=== PATIENT | male | born 1950 | race Caucasian/White ===

== ENCOUNTER 2016-11-11 03:13 | Inpatient (IN) | payer OTHER, MEDICARE ==
[~2016-11-11] VITALS: Ht 165.1 cm; Wt 77.1 kg
[~2016-11-11 03:13] MED LIST: ASPIRIN EC81 M1 PO; FENOFIBRATE134 M1 PO; MICARDIS HCT; MICARDIS HCT 81 EAC1 PO; OMEPRAZOLE40 M1 PO; SIMVASTATIN20 MG PO; [UNRECOGNIZED DRUG - OTHER]
[2016-11-11 07:53] LABS: ABSOLUTE BASOPHIL COUNT 0 /CUMM (0.0-0.2); ABSOLUTE EOSINOPHIL COUNT 0.1 /CUMM (0.0-0.7); ABSOLUTE GRANULOCYTE CT 2.1 /CUMM (1.4-6.5); ABSOLUTE LYMPH COUNT 2.5 /CUMM (1.2-3.4); ABSOLUTE MONOCYTE COUNT 0.4 /CUMM (0.10-0.60); BASOPHIL % 0.6 % (0.0-2.0); EOSINOPHIL % 2.9 % (0-5); GRANULOCYTE % 40.7 % (42.2-75.2); MEAN CORPUSCULAR HGB 32.1 PG (27.0-31.0); MEAN CORPUSCULAR HGB CONC 34.6 G/DL (33.0-37.0); MEAN CORPUSCULAR VOLUME 92.7 FL (80.0-94.0); MEAN PLATELET VOLUME 9.6 FL (7.4-10.4); PLATELET COUNT 200 /CUMM (130-400); RBC DISTRIBUTION WIDTH 14.1 % (11.5-14.5); RED BLOOD CELL CT 4.64 /CUMM (4.70-6.10); WHITE BLOOD CELL COUNT 5.1 /CUMM (4.8-10.8)
--- NOTE | 2016-11-11 11:44 | RADIOLOGY REPORT ---
EXAMINATION: XR HIP, LEFT CLINICAL INFORMATION: Left total hip replacement COMPARISON: None TECHNIQUE: Two views of the left hip. FINDINGS: The components of the noncemented left total hip arthroplasty are in their expected positions. The prosthetic femoral head is well-positioned within the acetabular cup which exhibits approximately 53 degrees of lateral version. No acute fractures. There is postoperative soft tissue emphysema of the hip. IMPRESSION: There is satisfactory positioning and alignment of components of the left total hip arthroplasty. No acute periprosthetic fracture.
--- NOTE | 2016-11-11 12:37 | Admission Core Measures ---
Admission Lab Results I reviewed the following labs: Laboratory Tests 11/11 0700 Chemistry Sodium (137 - 145 mmol/L) 140 Potassium (3.5 - 5.1 mmol/L) 4.1 Chloride (98 - 107 mmol/L) 103 Carbon Dioxide (22 - 30 mmol/L) 28 Anion Gap (5 - 16) 9 BUN (9 - 20 mg/dL) 20 Creatinine (0.7 - 1.2 mg/dL) 0.8 Estimated GFR (>60 ml/min) > 60 BUN/Creatinine Ratio (7 - 25 %) 25.0 Glucose (65 - 99 mg/dL) 96 Calcium (8.4 - 10.2 mg/dL) 9.9 Hematology CBC w Diff NO MAN DIFF REQ WBC (4.8 - 10.8 /CUMM) 5.1 RBC (4.70 - 6.10 /CUMM) 4.64 L Hgb (14.0 - 18.0 G/DL) 14.9 Hct (42 - 52 %) 43.0 MCV (80.0 - 94.0 FL) 92.7 MCH (27.0 - 31.0 PG) 32.1 H RDW (11.5 - 14.5 %) 14.1 Plt Count (130 - 400 /CUMM) 200 MPV (7.4 - 10.4 FL) 9.6 Gran % (42.2 - 75.2 %) 40.7 L Lymphocytes % (20.5 - 51.1 %) 48.3 Monocytes % (1.7 - 9.3 %) 7.5 Eosinophils % (0 - 5 %) 2.9 Basophils % (0.0 - 2.0 %) 0.6 Absolute Granulocytes (1.4 - 6.5 /CUMM) 2.1 Absolute Lymphocytes (1.2 - 3.4 /CUMM) 2.5 Absolute Monocytes (0.10 - 0.60 /CUMM) 0.4 Absolute Eosinophils (0.0 - 0.7 /CUMM) 0.1 Absolute Basophils (0.0 - 0.2 /CUMM) 0 PUBS MCHC (33.0 - 37.0 G/DL) 34.6 Admission Meds I reviewed the following Meds: Current Medications Sig/Samantha Start time Last Medication Dose Stop Time Status Admin Acetaminophen 975 MG ONCE 11/11 0000 AC (Tylenol) 05/03 2359 Atorvastatin Calcium 10 MG 1700 11/11 1700 AC (Lipitor) Cefazolin Sodium 2,000 MG ONCE 11/11 0000 NR (Kefzol-Ancef Inj) 11/11 2358 Fenofibrate 145 MG DAILY 11/12 1000 AC (Tricor) Losartan Potassium 50 MG DAILY 11/12 1000 AC (Cozaar) Omeprazole 40 MG DAILY AC 11/11 1219 AC (Prilosec) Oxycodone HCl 10 MG ONCE 11/11 0000 NR (Roxicodone) 11/11 2358 Acute Coronary Syndrome Inclusion Criteria ACS Diagnosis No Inpatient Core Measures LDL Reminder: If No, please order W/I first 24hr of stay Congestive Heart Failure Inclusion Criteria CHF Diagnosis No Cerebrovascular accident Inclusion Criteria CVA/TIA Diagnosis No Inpatient Core Measures Bedside Swallow Eval Reminder: If BSE failed, place ST order Antithrombotic Reminder: Order Antithrombotic Medication by end of day 2 Antithrombotic Reminder: Document Reason Antithrombotic Not ordered by end of day 2 AFIB/Flutter Reminder: If Present, add to problem list AFIB/Flutter Reminder: Order Anticoag Medication for pts with AFIB/Flutter Atherosclerosis Reminder: If Present, add to problem list LDL Reminder: If No, please order W/I first 24hr of stay PT Order Reminder: If No, please order Venous thromboembolism Inpatient Core Measures VTE Risk Factors: Age > 40, Surgery [facility] prophylaxis d/t No contraindications No VTE Pharm Prophylaxis d/t No contraindications Inclusion Criteria - Per Current guidelines, there needs to be overlap - treatment for the first 5 days of Warfarin therapy. - Parenteral Anticoagulation (IV or SC) needs to be - given along with Warfarin therapy. VTE Diagnosis No VTE Type NONE VTE Confirmed by (Test) NONE Problem List As ranked by this Provider includes Assessment & Plan 1. Unilateral primary osteoarthritis, left hip HOME MEDS Home Med List Aspirin (Ecotrin*) 81 MG TABLET.DR 1 TAB PO DAILY PROPHO (Reported) Fenofibrate,Micronized (Fenofibrate) 134 MG CAPSULE 1 CAP PO DAILY TRIGLYCERIDES (Reported) Omeprazole 40 MG CAPSULE.DR 1 CAP PO DAILY GERD (Reported) Simvastatin (Zocor) 20 MG TAB 1 TAB PO QPM CHOLESTEROL (Reported) Telmisartan/Hydrochlorothiazid (Micardis Hct 80-25 MG Tablet) 80 MG-25 MG TABLET 1 TAB PO DAILY HTN (Reported)
[2016-11-11] MEDS ORDERED: MS CONTIN15 M2 PO (12:38)
[2016-11-11] MEDS ORDERED: DILAUDID2 M1 PO (12:38)
[2016-11-11] MEDS ORDERED: MIRALAX17 G1 PO (12:38)
[2016-11-11] MEDS ORDERED: ASPIRIN EC325 M2 PO (12:38)
[2016-11-11] MEDS ORDERED: COLACE100 M1 PO (12:38)
--- NOTE | 2016-11-11 12:43 | Patient Discharge Instructions ---
Discharge Instructions General Discharge Information You were seen/treated for: LEFT HIP UNILATERAL PRIMARY OSTEOARTHRITIS You had these procedures: LEFT TOTAL HIP REPLACEMENT Watch for these problems: INCREASING PAIN DESPITE THE USE OF PAIN MEDICATIONS. INCREASING REDNESS, WARMTH , SWELLING. DRAINAGE OF ANY TYPE FROM INCISION. INABILITY TO BEAR WEIGHT ON LEFT LEG. FEVER GREATER THAN 101.5 Do not soak the wound: Yes No bath, but you may shower: Yes Other wound care: KEEP WOUND CLEAN AND DRY NO OINTMENTS OF ANY TYPE ON OR NEAR INCISION, NO EXCEPTIONS Diet Continue normal diet: Yes Recommended Diet: Regular Additional DIET Information: ADVANCE TOLERATED Activity Full Activity/No Limits: No Activity Self Limited: Yes Pounds, do NOT lift more than: 10 Additional ACTIVITY Info: WEIGHT BEAR TOLERATED ON LEFT LEG Acute Coronary Syndrome Inclusion Criteria At DC or during hospital stay patient has or had the following: ACS DIAGNOSIS No Discharge Core Measures Meds if any: Prescribed or Continued at Discharge Meds if any: NOT Prescribed or Continued at Discharge Congestive Heart Failure Inclusion Criteria At DC or during hospital stay patient has or had the following: CHF DIAGNOSIS No Discharge Core Measures Meds if any: Prescribed or Continued at Discharge Meds if any: NOT Prescribed or Continued at Discharge Cerebrovascular accident Inclusion Criteria At DC or during hospital stay patient has or had the following: CVA/TIA Diagnosis No Discharge Core Measures Meds if any: Prescribed or Continued at Discharge Meds if any: NOT Prescribed or Continued at Discharge Venous thromboembolism Inclusion Criteria VTE Diagnosis No VTE Type NONE VTE Confirmed by (Test) NONE Discharge Core Measures - Per Current guidelines, there needs to be overlap - treatment for the first 5 days of Warfarin therapy. - If discharged on Warfarin prior to 5 days of - overlap therapy, the patient will need to be - assessed for post discharge needs including - *Post discharge parental anticoagulation - *Warfarin and/or parental anticoagulation education - *Follow up date to check INR post discharge At least 5 days overlap therapy as Inpatient No Meds if any: Prescribed or Continued at Discharge Note: Overlap Therapy is Warfarin and Anticoagulant Meds if any: NOT Prescribed or Continued at Discharge
--- NOTE | 2016-11-11 12:47 | Surgical Discharge Summary ---
Visit Information Visit Dates Admission Date: 11/11/16 Discharge Date: 11/12/16 History of Present Illness Chief Complaint: LEFT HIP PAIN Surgical History Pertinent Surgical History: non-contributory Psychosocial History What is Your Primary Language? Greek Review of Systems: SEE H&P Hospital Course Course Attending Physician: RANDY LITTLEJOHN MD [facility] [place] was admitted to the hospital on 11/11/2016 for an elective left total hip replacement. He tolerated the procedure well and was transferred to a general surgical floor. There, his vital signs were stable and within normal limits, his neurovascular status remained intact, and his diet was advanced and tolerated. He voided spontaneously. His pain was controlled with oral pain medication and he was evaluated and treated by physical therapy. He was deemed appropriate for discharge. Allergies: Coded Allergies: NO KNOWN ALLERGIES (02/15/14) Disposition Summary Disposition Principal Diagnosis: left hip unilateral primary osteoarthritis Additional Diagnosis: none Discharge Disposition: home health services Discharge Instructions General Discharge Information Code Status: Full Code Patient's Diet: regular, advance as tolerated Patient's Activity: wbat Follow-Up Instructions/Appts: follow up with Dr. Littlejohn in 6 weeks from date of surgery Medications at Discharge Discharge Medications: Stop taking the following medications: Aspirin (Ecotrin*) 81 MG TABLET. ORAL DAILY Continue taking these medications: Simvastatin (Zocor) 20 MG TAB 1 Tablet ORAL Every night Fenofibrate,Micronized (Fenofibrate) 134 MG CAPSULE 1 Capsule ORAL DAILY Comments: Last Taken: 11/12/16 Time: 0800 Telmisartan/Hydrochlorothiazid (Micardis Hct 80-25 MG Tablet) 80 MG-25 MG TABLET 1 Tablet ORAL DAILY Comments: Last Taken: 11/12/16 Time: 0800 Omeprazole (Omeprazole) 40 MG CAPSULE.DR 1 Capsule ORAL DAILY Comments: Last Taken: 11/12/16 Time: 0530 Start taking the following new medications: Aspirin (Ecotrin*) 325 MG TABLET. 1 Tablet ORAL TWICE DAILY Qty = 60 No Refills Docusate Sodium (Colace) 100 MG CAPSULE 1 Capsule ORAL TWICE DAILY Qty = 14 No Refills Instructions: DISCONTINUE USE IF YOU DEVELOP LOOSE STOOL OR DIARRHEA Hydromorphone HCl (Dilaudid) 2 MG TABLET 1-2 Tablet ORAL EVERY 4-6 HOURS as needed for PAIN Qty = 36 No Refills Polyethylene Glycol 3350 (Miralax) 17 GRAM POWD.PACK 1 Packet ORAL DAILY Qty = 7 No Refills Instructions: dissolve in water, DISCONTINUE USE IF YOU DEVELOP LOOSE STOOL OR DIARRHEA Morphine Sulfate (Ms Contin) 15 MG TABLET.ER 1 Tablet ORAL TWICE DAILY Qty = 6 No Refills
[2016-11-11 13:55] VITALS: BP 138/72
--- NOTE | 2016-11-11 13:56 | Operative Report ---
Operative/Inv Procedure Report Surgery Date: 11/11/16 Name of Procedure: Left total hip replacement Pre-Operative Diagnosis: Left hip avascular necrosis Post-Operative Diagnosis: Same Estimated Blood Loss: 300 Surgeon/[employer] Salesperson: RANDY LITTLEJOHN MD Anesthesia: block Operative/Procedure Note Note: Description of Procedure: The patient was taken to the operating room and positively identified. After induction of spinal anesthesia and administration of appropriate pre-operative antibiotics, the patient was positioned supine on the operating room table and all bony prominences were well padded. After performing a surgical timeout, the left lower extremity was prepped and draped in the usual sterile fashion. A direct anterior approach was made to the left hip. The incision was carried sharply through superficial soft tissues to the level of the fascia. Meticulous hemostasis was maintained with Bovie electocautery. The fascia over the tensor fascia tony muscle was opened sharply and the interval between the TFL and the sartorius was entered bluntly taking care to stay lateral to the lateral femoral cutaneous nerve. Retractors were placed around the femoral neck and the pericapsular fat was identified. The ascending branches of the lateral femoral circumflex vessels were identified and carefully coagulated. The pericapsular fat and anterior capsule were then resected. A napkin ring osteotomy was performed and the femoral head was removed without difficulty. Attention was then turned to the acetabulum. After appropriate placement of retractors, the acetabulum was exposed. Soft tissue was cleaned from the acetabular margin and notch. Overhanging osteophytes were removed and the teardrop was exposed. The acetabulum was then sequentially reamed to accept a 58 mm Salima Tritanium hemispherical solid back shell. This was impacted into place in the appropriate position and fitted with a 36 mm Trident X3 zero degree polyethylene insert. Attention was then turned to the femur. After performing the appropriate ligament releases, the proximal femur was exposed. It was then sequentially broached to accept a size 4 Salima accolade 2 stem. This was trialed for leg length and stability. The trial component was removed and the final component was impacted into place. The trunnion was carefully cleaned and fit with a 36 mm, -2.5 Biolox delta ceramic femoral head. The hip was reduced and put through a full range of motion and found to be stable. The articular space was then irrigated with sterile saline. The periarticular soft tissues were infilitrated with Marcaine. The fascial layer was closed with interrupted #1 vicryl suture and the skin was re-approximated with interrupted 2 -0 vicryl. The skin was closed with a running 3-0 V-Lock suture. Steri-strips and a sterile dressing were applied. The patient was awakened and taken to the recovery room in satisfactory condition.
--- NOTE | 2016-11-11 15:08 | PN- Orthopedic ---
Subjective Subjective: The patient was seen this afternoon postoperatively. He complains of some mild incisional soreness but is otherwise comfortable. He has no complaints of current time. He denies any chest pain or palpitations and is eager to with physical therapy. Objective Vital Signs and I&Os Afebrile stable vital signs I's and O's: 1700 ML's in of lactated Ringer's/patient is due to void/EBL less than 150 Physical Exam: Gen.: Alert and in no obvious distress Skin: Warm and dry Cardiac: S1-S2 regular Pulmonary: Bilateral breath sounds are equal with good exchange Extremities: Bilateral lower extremities warm without calf tenderness or significant edema. Gross motor and sensory are intact. Left hip surgical dressing is clean, dry, and intact. Assessment/Plan Assessment/Plan Assessment: 66-year-old male status post left total hip arthroplasty. Postoperative the patient is progressing as expected and his pain is under adequate control. Plan: Out of bed with physical therapy patient is weightbearing as tolerated GI and DVT prophylaxis Continue current pain regiment 2 doses of prophylactic postoperative antibiotics Advance diet as tolerated keep IV fluids until the morning Strict I's and O's and monitor for postoperative void Begin aspirin 325 mg by mouth twice a day first dose tonight Resume home medications Follow-up morning laboratory studies Core Measures/Miscellaneous Venous Thromboembolism VTE Risk Factors: Age > 40, Surgery VTE Contraindications: No Contraindications VTE Diagnosis: No VTE Type: NONE VTE Confirmed by (Test): NONE Beta Fred Is Beta Fred a Home Med? No Antibiotics Is Patient on Antibiotics? Yes If Yes: prophylaxis
[2016-11-11 16:00] VITALS: BP 120/76
[2016-11-11 18:00] VITALS: BP 132/70
[2016-11-11 20:11] VITALS: BP 122/80
[2016-11-12 00:17] VITALS: BP 124/80
[2016-11-12 04:06] VITALS: BP 128/74
--- NOTE | 2016-11-12 07:46 | PN- Orthopedic ---
Subjective Subjective: OOB in chair Ambulated yesterday with PT - has not tried stairs yet Couldn't sleep well. Pain is not really tolerable with just the dilaudid. Objective Vital Signs and I&Os Vital Signs Date Time Temp Pulse Resp B/P B/P Pulse O2 O2 Flow FiO2 Mean Ox Delivery Rate 11/12 0406 98.6 86 20 128/74 96 Room Air 11/12 0017 97.6 78 20 124/80 95 Room Air 11/11 2010 98.0 86 20 122/80 96 Room Air 11/11 1800 97.5 105 20 132/70 95 Room Air 11/11 1600 97.9 95 20 120/76 96 Room Air 11/11 1355 97.6 81 18 138/72 96 Room Air Intake & Output 11/12 0000 11/11 1600 11/11 0000 11/10 1600 Intake Total 590 480 475 Output Total Balance 590 480 475 Intake, IV 350 75 Intake, Oral 240 480 400 Number 0 0 Bowel Movements Patient 170 lb Weight Physical Exam: vss, afebrile General: alert and oriented times three Chest: clear anteriorly bilaterally, RRR Abd: soft, good bs Ext: warm, no edema, positive sensate, no calf tenderness Wound: dressed, dry Assessment/Plan Assessment/Plan 66yo male s/p L FORREST - pod 1 pain mgmt - add ms contin this morning PT - WBAT plan to discharge once pain is well controlled with oral meds and cleared by PT asa 325mg po bid for dvt ppx abx for 24hrs post op fu labs Core Measures/Miscellaneous Venous Thromboembolism VTE Risk Factors: Age > 40, Surgery VTE Contraindications: No Contraindications VTE Diagnosis: No VTE Type: NONE VTE Confirmed by (Test): NONE Beta Fred Is Beta Fred a Home Med? No Antibiotics Is Patient on Antibiotics? Yes If Yes: prophylaxis
[2016-11-12 08:00] LABS: ABSOLUTE BASOPHIL COUNT 0 /CUMM (0.0-0.2); ABSOLUTE EOSINOPHIL COUNT 0 /CUMM (0.0-0.7); EOSINOPHIL % 0 % (0-5); RBC DISTRIBUTION WIDTH 13.7 % (11.5-14.5)
[2016-11-12 08:11] VITALS: BP 128/74
[2016-11-12 08:20] LABS: ABSOLUTE GRANULOCYTE CT 7.8 /CUMM (1.4-6.5); ABSOLUTE LYMPH COUNT 1.3 /CUMM (1.2-3.4); ABSOLUTE MONOCYTE COUNT 0.8 /CUMM (0.10-0.60); BASOPHIL % 0.3 % (0.0-2.0); MEAN CORPUSCULAR HGB 32.6 PG (27.0-31.0); MEAN CORPUSCULAR HGB CONC 35.1 G/DL (33.0-37.0); MEAN CORPUSCULAR VOLUME 92.9 FL (80.0-94.0); MEAN PLATELET VOLUME 9.8 FL (7.4-10.4); PLATELET COUNT 161 /CUMM (130-400); RED BLOOD CELL CT 3.74 /CUMM (4.70-6.10)
[2016-11-12 08:24] LABS: GRANULOCYTE % 78.6 % (42.2-75.2); HEMATOCRIT 34.7 % (42-52)
== END 2016-11-12 11:56 | disposition home health service (06) | DRG 470 ==
LOC: SDA 03:13 → ENRESERV 11:50 → 2NA 13:55 → ENPENDDIS 11-12 10:36 → 2NA 11-12 11:56
PROVIDERS: Nurse Practitioner; ADMIT Orthopaedic Surgery
PROC: 0SRB04A Replacement of Left Hip Joint with Ceramic on Polyethylene Synthetic Substitute, Uncemented, Open Approach (ICD-10-PCS; principal; 2016-11-11)
DX: M16.12 Unilateral primary osteoarthritis, left hip (principal); M87.852 Other osteonecrosis, left femur; I10 Essential (primary) hypertension; K21.9 Gastro-esophageal reflux disease without esophagitis; F17.210 Nicotine dependence, cigarettes, uncomplicated
CPT/HCPCS: 2NASP; 73502-LT; 82436; 88304; 97110-GO; 97116-GO; 97161-GP; 97530-GO; J0131; J0690; J0735; J1100; J2405; J2550; J7042

== ENCOUNTER 2016-12-28 03:33 | Inpatient (IN) | payer OTHER, MEDICARE ==
[~2016-12-28] VITALS: Ht 165.1 cm; Wt 77.1 kg
[~2016-12-28 03:33] MED LIST changes: +ASPIRIN EC325 M2 PO; +COLACE100 M1 PO; +DILAUDID2 M1 PO; +MIRALAX17 G1 PO; +MS CONTIN15 M2 PO
[2016-12-28] MEDS ORDERED: ASPIRIN EC325 M2 PO (10:38)
--- NOTE | 2016-12-28 10:38 | Admission Core Measures ---
Admission Lab Results I reviewed the following labs: Laboratory Tests 12/28 0653 Chemistry Sodium (137 - 145 mmol/L) 143 Potassium (3.5 - 5.1 mmol/L) 4.3 Chloride (98 - 107 mmol/L) 106 Carbon Dioxide (22 - 30 mmol/L) 31 H Anion Gap (5 - 16) 6 BUN (9 - 20 mg/dL) 23 H Creatinine (0.7 - 1.2 mg/dL) 1.0 Estimated GFR (>60 ml/min) > 60 BUN/Creatinine Ratio (7 - 25 %) 23.0 Glucose (65 - 99 mg/dL) 104 H Calcium (8.4 - 10.2 mg/dL) 9.7 Admission Meds I reviewed the following Meds: Current Medications Sig/Samantha Start time Last Medication Dose Stop Time Status Admin Acetaminophen 975 MG ONCE 12/28 0000 NR (Tylenol) 12/28 2358 Atorvastatin Calcium 10 MG QPM 12/28 2200 AC (Lipitor) Cefazolin Sodium 2,000 MG ONCE 12/28 0000 NR (Kefzol-Ancef Inj) 12/28 2358 Fenofibrate 145 MG DAILY 12/28 1000 AC (Tricor) Losartan Potassium 100 MG DAILY 12/28 1000 AC (Cozaar) Omeprazole 40 MG DAILY AC 12/29 0700 AC (Prilosec) Oxycodone HCl 10 MG ONCE 12/28 0000 NR (Roxicodone) 12/28 2358 Acute Coronary Syndrome Inclusion Criteria ACS Diagnosis No Inpatient Core Measures LDL Reminder: If No, please order W/I first 24hr of stay Congestive Heart Failure Inclusion Criteria CHF Diagnosis No Cerebrovascular accident Inclusion Criteria CVA/TIA Diagnosis No Inpatient Core Measures Bedside Swallow Eval Reminder: If BSE failed, place ST order Antithrombotic Reminder: Order Antithrombotic Medication by end of day 2 Antithrombotic Reminder: Document Reason Antithrombotic Not ordered by end of day 2 AFIB/Flutter Reminder: If Present, add to problem list AFIB/Flutter Reminder: Order Anticoag Medication for pts with AFIB/Flutter Atherosclerosis Reminder: If Present, add to problem list LDL Reminder: If No, please order W/I first 24hr of stay PT Order Reminder: If No, please order Venous thromboembolism Inpatient Core Measures VTE Risk Factors: Age > 40, Previous VTE No Mech VTE prophylaxis d/t No contraindications No VTE Pharm Prophylaxis d/t No contraindications Inclusion Criteria - Per Current guidelines, there needs to be overlap - treatment for the first 5 days of Warfarin therapy. - Parenteral Anticoagulation (IV or SC) needs to be - given along with Warfarin therapy. VTE Diagnosis No VTE Type NONE VTE Confirmed by (Test) NONE Problem List As ranked by this Provider includes Assessment & Plan 1. Unilateral primary osteoarthritis, right hip HOME MEDS Home Med List Aspirin (Ecotrin*) 325 MG TABLET.DR 1 TAB PO BID ANTICOAGULATION Fenofibrate,Micronized (Fenofibrate) 134 MG CAPSULE 1 CAP PO DAILY TRIGLYCERIDES (Reported) Omeprazole 40 MG CAPSULE.DR 1 CAP PO DAILY GERD (Reported) Simvastatin (Zocor) 20 MG TAB 1 TAB PO QPM CHOLESTEROL (Reported) Telmisartan/Hydrochlorothiazid (Micardis Hct 80-25 MG Tablet) 80 MG-25 MG TABLET 1 TAB PO DAILY HTN (Reported)
[2016-12-28] MEDS ORDERED: MIRALAX17 G1 PO (10:39)
[2016-12-28] MEDS ORDERED: COLACE100 M1 PO (10:39)
[2016-12-28] MEDS ORDERED: DILAUDID2 M1 PO (10:39)
[2016-12-28] MEDS ORDERED: MS CONTIN15 M2 PO (10:39)
--- NOTE | 2016-12-28 10:42 | Patient Discharge Instructions ---
Discharge Instructions General Discharge Information You were seen/treated for: Right hip pain related to unilateral primary osteoarthritis You had these procedures: Right total hip replacement Watch for these problems: Increasing pain despite the use of pain medication. Increasing redness, warmth or swelling. Drainage of any type from incision. Inability to bear weight on operative leg. Persistent nausea and vomiting. Fever greater than 101.5 degrees. Do not soak the wound: Yes No bath, but you may shower: Yes Other wound care: Please keep wound clean and dry. No ointments or lotions of any type on or near incision at any time. No exceptions. Your dressing will be changed by your nurse on the second day after your surgery. Daily dry dressing changes are recommended each day thereafter. Do not soak your wound in a bath at any time until otherwise indicated by Dr. Hernández. You may shower, please dry wound immediately after shower with a clean towel. Special Instructions: Aspirin: You are taking this medication to help prevent the development of blood clots. Please take with food to protect your stomach lining. Please take as directed. Constipation: Pain medication can be very constipating. Dr. Hernández has recommended that you take Colace and miralax each day. You may discontinue this medication if you develop loose stool or diarrhea. If you wish to continue this medication, it is available over the counter. If you are unable to move your bowels after several days, if you are unable to pass gas and are developing bloating, nausea, or vomiting as a result, please contact your doctor. Diet Continue normal diet: Yes Recommended Diet: Heart Healthy DAILY Calorie limit of: 10 Activity Full Activity/No Limits: No Activity Self Limited: Yes Pounds, do NOT lift more than: 10 Activity Limited to: Weight bear as tolerated Acute Coronary Syndrome Inclusion Criteria At DC or during hospital stay patient has or had the following: ACS DIAGNOSIS No Discharge Core Measures Meds if any: Prescribed or Continued at Discharge Meds if any: NOT Prescribed or Continued at Discharge Congestive Heart Failure Inclusion Criteria At DC or during hospital stay patient has or had the following: CHF DIAGNOSIS No Discharge Core Measures Meds if any: Prescribed or Continued at Discharge Meds if any: NOT Prescribed or Continued at Discharge Cerebrovascular accident Inclusion Criteria At DC or during hospital stay patient has or had the following: CVA/TIA Diagnosis No Discharge Core Measures Meds if any: Prescribed or Continued at Discharge Meds if any: NOT Prescribed or Continued at Discharge Venous thromboembolism Inclusion Criteria VTE Diagnosis No VTE Type NONE VTE Confirmed by (Test) NONE Discharge Core Measures - Per Current guidelines, there needs to be overlap - treatment for the first 5 days of Warfarin therapy. - If discharged on Warfarin prior to 5 days of - overlap therapy, the patient will need to be - assessed for post discharge needs including - *Post discharge parental anticoagulation - *Warfarin and/or parental anticoagulation education - *Follow up date to check INR post discharge At least 5 days overlap therapy as Inpatient No Meds if any: Prescribed or Continued at Discharge Note: Overlap Therapy is Warfarin and Anticoagulant Meds if any: NOT Prescribed or Continued at Discharge
--- NOTE | 2016-12-28 10:45 | Surgical Discharge Summary ---
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 Significant Other Services at Home: None What is Your Primary Language? [place] Review of Systems: See H&P Hospital Course Course Attending Physician: RANDY LITTLEJOHN MD [facility] Phys[facility] Hospital Course: Patient was admitted to the hospital for an elective total joint replacement. The procedure was tolerated well and the patient was transferred to a general surgical floor. Diet was advanced and tolerated and the patient voided spontaneously. The patient was evaluated and treated by physical therapy. At the time of hospital discharge, the patinets vital signs were stable and within normal limits, neurovascular status was intact, and pain was controlled with the use of oral pain medications. Allergies: Coded Allergies: NO KNOWN ALLERGIES (02/15/14) Disposition Summary Disposition Principal Diagnosis: Right hip unilateral primary osteoarthritis Additional Diagnosis: none Discharge Disposition: home health services Discharge Instructions General Discharge Information Code Status: Full Code Patient's Diet: Heart healthy, advance as tolearted Patient's Activity: WBAT Follow-Up Instructions/Appts: Follow up with Dr. Littlejohn in 6 weeks from date of surgery. Please call his office to arrange and/or confirm this appointment. Medications at Discharge Discharge Medications: Continue taking these medications: Simvastatin (Zocor) 20 MG TAB 1 Tablet ORAL Every night Fenofibrate,Micronized (Fenofibrate) 134 MG CAPSULE 1 Capsule ORAL DAILY Comments: Last Taken: 11/12/16 Time: 0800 Telmisartan/Hydrochlorothiazid (Micardis Hct 80-25 MG Tablet) 80 MG-25 MG TABLET 1 Tablet ORAL DAILY Comments: Last Taken: 11/12/16 Time: 0800 Omeprazole (Omeprazole) 40 MG CAPSULE. 1 Capsule ORAL DAILY Comments: Last Taken: 11/12/16 Time: 0530 Aspirin (Ecotrin*) 325 MG TABLET. 1 Tablet ORAL TWICE DAILY Qty = 60 This prescription has been renewed Start taking the following new medications: Docusate Sodium (Colace) 100 MG CAPSULE 1 Capsule ORAL TWICE DAILY Qty = 14 No Refills Instructions: DISCONTINUE USE IF YOU DEVELOP LOOSE STOOL OR DIARRHEA Hydromorphone HCl (Dilaudid) 2 MG TABLET 1-2 Tablet ORAL EVERY 4-6 HOURS as needed for PAIN Qty = 36 No Refills Polyethylene Glycol 3350 (Miralax) 17 GRAM POWD.PACK 1 Packet ORAL DAILY Qty = 7 No Refills Instructions: dissolve in water, DISCONTINUE USE IF YOU DEVELOP LOOSE STOOL OR DIARRHEA Morphine Sulfate (Ms Contin) 15 MG TABLET.ER 1 Tablet ORAL TWICE DAILY Qty = 6 No Refills
--- NOTE | 2016-12-28 11:25 | RADIOLOGY REPORT ---
EXAMINATION: XR HIP, RIGHT CLINICAL INFORMATION: Status post right hip replacement COMPARISON: None TECHNIQUE: Two views of the right hip. FINDINGS: Status post recent arthroplasty. Intact hardware. Prosthesis is well seated. Recent postoperative changes with small amount of air in the soft tissues. IMPRESSION: Recent postoperative changes.
--- NOTE | 2016-12-28 12:30 | PN- Orthopedic ---
Subjective Subjective: The patient was seen this afternoon postoperatively. He reports that his pain is under adequate control has no other complaints at the current time. He has ambulated well with physical therapy but hasn't voided postoperatively. Objective Vital Signs and I&Os Vital signs: Blood pressure 100/60, pulse 65, temperature 98.6, O2 saturations 99% on room air Physical Exam: Gen.: Alert and in no obvious distress Skin: Warm and dry Cardiac: S1-S2 regular Pulmonary: Bilateral breath sounds are equal with good exchange Extremities: Bilateral lower extremities are warm without calf tenderness or significant edema. Gross motor and sensory were intact. Surgical dressing was clean, dry, and intact. Assessment/Plan Assessment/Plan Assessment: 66-year-old male status post right total hip arthroplasty. Postoperative the patient is progressing as expected and his pain is under adequate control. Plan: Out of bed with physical therapy Monitor for postoperative void Strict I's and O's Continue current pain regiment Resume home medications 2 doses of postoperative prophylactic antibiotics Follow-up morning laboratory studies GI and DVT prophylaxis first dose of aspirin tonight Core Measures/Miscellaneous Venous Thromboembolism VTE Risk Factors: Age > 40, Smoking, Surgery VTE Contraindications: No Contraindications VTE Diagnosis: No VTE Type: NONE VTE Confirmed by (Test): NONE Beta Fred Is Beta Fred a Home Med? No Antibiotics Is Patient on Antibiotics? Yes If Yes: prophylaxis
--- NOTE | 2016-12-28 12:57 | NUR ---
1200 patient arrived to unit- pt met him at stretcher, sat at side, c/o lightheadedness and some numbness still noted to lower ext, sat for a few minutes, vs checked b/p 90/60, otherwise stable, ambulated with pt from stretcher to chayo chair in room, tolerated well with rolling walker, no more complaints of lightheadedness, no c.o pain at this time, IST provided as patient found with faint wheezing to right upper lobe, diminished to b/l lower lobe, see other paperowrk for additional assessments, currently resting in chayo chair with call gee in reach safety maintained.
--- NOTE | 2016-12-28 12:59 | NUR ---
pateint c/o itching to belly and flank, bruno newby notified, patient also with decreased temp 93-94 degrees- temperature was taken while patient was drinking a cold beverage will attempt retry later, bruno newby aware.
[2016-12-28 13:07] VITALS: BP 90/60
[2016-12-28 13:52] VITALS: BP 112/60
--- NOTE | 2016-12-28 14:29 | Operative Report ---
Operative/Inv Procedure Report Surgery Date: 12/28/16 Name of Procedure: Right total hip replacement Pre-Operative Diagnosis: Right hip avascular necrosis Post-Operative Diagnosis: Same Estimated Blood Loss: 250 Surgeon/Farm Machinery Mechanic: ERON VENTURA,RANDY Kong Anesthesia: block Operative/Procedure Note Note: Description of Procedure: The patient was taken to the operating room and positively identified. After induction of spinal anesthesia and administration of appropriate pre-operative antibiotics, the patient was positioned supine on the operating room table and all bony prominences were well padded. After performing a surgical timeout, the right lower extremity was prepped and draped in the usual sterile fashion. A direct anterior approach was made to the right hip. The incision was carried sharply through superficial soft tissues to the level of the fascia. Meticulous hemostasis was maintained with Bovie electocautery. The fascia over the tensor fascia tony muscle was opened sharply and the interval between the TFL and the sartorius was entered bluntly taking care to stay lateral to the lateral femoral cutaneous nerve. Retractors were placed around the femoral neck and the pericapsular fat was identified. The ascending branches of the lateral femoral circumflex vessels were identified and carefully coagulated. The pericapsular fat and anterior capsule were then resected. A napkin ring osteotomy was performed and the femoral head was removed without difficulty. Attention was then turned to the acetabulum. After appropriate placement of retractors, the acetabulum was exposed. Soft tissue was cleaned from the acetabular margin and notch. Overhanging osteophytes were removed and the teardrop was exposed. The acetabulum was then sequentially reamed to accept a 58 mm Cunningham Tritanium hemispherical solid back shell. This was impacted into place in the appropriate position and fitted with a 36 mm Trident X3 zero degree polyethylene insert. Attention was then turned to the femur. After performing the appropriate ligament releases, the proximal femur was exposed. It was then sequentially broached to accept a size #4 Cunningham accolade 2 stem. This was trialed for leg length and stability. The trial component was removed and the final component was impacted into place. The trunnion was carefully cleaned and fit with a 36 mm, +0 Biolox delta ceramic femoral head. The hip was reduced and put through a full range of motion and found to be stable. The articular space was then irrigated with sterile saline. The periarticular soft tissues were infilitrated with Marcaine. The fascial layer was closed with interrupted #1 vicryl suture and the skin was re-approximated with interrupted 2 -0 vicryl. The skin was closed with a running 3-0 V-Lock suture. Steri-strips and a sterile dressing were applied. The patient was awakened and taken to the recovery room in satisfactory condition.
[2016-12-28 16:21] VITALS: BP 142/90
[2016-12-28 18:44] VITALS: BP 118/70
[2016-12-28 22:17] VITALS: BP 98/50
[2016-12-29 02:10] VITALS: BP 132/64
[2016-12-29 06:00] VITALS: BP 124/70
[2016-12-29 08:15] LABS: ABSOLUTE BASOPHIL COUNT 0 /CUMM (0.0-0.2); ABSOLUTE EOSINOPHIL COUNT 0 /CUMM (0.0-0.7); ABSOLUTE GRANULOCYTE CT 8.7 /CUMM (1.4-6.5); ABSOLUTE LYMPH COUNT 1.6 /CUMM (1.2-3.4); BASOPHIL % 0.4 % (0.0-2.0); EOSINOPHIL % 0 % (0-5); GRANULOCYTE % 76.7 % (42.2-75.2); HEMATOCRIT 35.5 % (42-52); MEAN CORPUSCULAR HGB 31.4 PG (27.0-31.0); MEAN CORPUSCULAR HGB CONC 33.4 G/DL (33.0-37.0); MEAN CORPUSCULAR VOLUME 93.8 FL (80.0-94.0); MEAN PLATELET VOLUME 9.6 FL (7.4-10.4); PLATELET COUNT 186 /CUMM (130-400); RED BLOOD CELL CT 3.79 /CUMM (4.70-6.10); WHITE BLOOD CELL COUNT 11.4 /CUMM (4.8-10.8)
--- NOTE | 2016-12-29 08:27 | PN- Orthopedic ---
Subjective Subjective: The patient was seen this morning postoperatively day #1. He reports that his pain is under adequate control and has no other complaints. He is eager to get out of bed with physical therapy this morning and be discharged later today. Objective Vital Signs and I&Os Vital Signs Date Time Temp Pulse Resp B/P B/P Pulse O2 O2 Flow FiO2 Mean Ox Delivery Rate 12/29 0600 97.9 70 16 124/70 95 Room Air 12/29 0210 97.9 72 18 132/64 95 Room Air 12/28 2217 97.9 79 18 98/50 94 Room Air 12/28 1844 97.8 91 20 118/70 96 Room Air 12/28 1621 97.6 63 20 142/90 95 Room Air 12/28 1352 96.0 75 20 112/60 98 Room Air 12/28 1332 95.5 / 1321 Room Air 12/28 1307 Room Air 12/28 1307 61 18 90/60 95 Room Air Intake & Output / 1600 / 0800 / 0000 / 1600 12/28 0800 12/28 0000 Intake Total 200 700 Output Total 750 400 Balance -550 300 Intake, IV 300 Intake, Oral 200 400 Output, Urine 750 400 Patient 170 lb Weight Physical Exam: Gen.: Alert and in no obvious distress Skin: Warm and dry Extremities: Bilateral lower extremities are warm without calf tenderness or significant edema. Gross motor and sensory are intact. Right hip surgical dressing is clean, dry, and intact. Assessment/Plan Assessment/Plan Assessment: 66-year-old male status post right total hip arthroplasty postoperative day #1. The patient is progressing as expected and his pain is under adequate control. Plan: Out of bed with physical therapy Follow-up morning laboratory studies Hep-Lock IV fluids PRN pain medication GI and DVT prophylaxis Discharge home later today if cleared by PT Core Measures/Miscellaneous Venous Thromboembolism VTE Risk Factors: Age > 40, Smoking, Surgery VTE Contraindications: No Contraindications VTE Diagnosis: No VTE Type: NONE VTE Confirmed by (Test): NONE Beta Fred Is Beta Fred a Home Med? No Antibiotics Is Patient on Antibiotics? No
[2016-12-29 10:21] VITALS: BP 126/90
== END 2016-12-29 17:07 | disposition home health service (06) | DRG 470 ==
LOC: SDA 03:33 → 2NA 03:33 → ENRESERV 10:56 → ENTRNSPT 11:47 → EDTRNSPTSTS 11:59 → 2NA 12:05 → CMPTRNSPT 12:17 → ENPENDDIS 12-29 08:38 → 2NA 12-29 17:07
PROVIDERS: Nurse Practitioner; ADMIT Orthopaedic Surgery
PROC: 0SR904A Replacement of Right Hip Joint with Ceramic on Polyethylene Synthetic Substitute, Uncemented, Open Approach (ICD-10-PCS; principal; 2016-12-28)
DX: M16.11 Unilateral primary osteoarthritis, right hip (principal); M87.851 Other osteonecrosis, right femur; I10 Essential (primary) hypertension; M25.751 Osteophyte, right hip; E78.5 Hyperlipidemia, unspecified; Z87.442 Personal history of urinary calculi; Z96.642 Presence of left artificial hip joint; K21.9 Gastro-esophageal reflux disease without esophagitis; Z86.19 Personal history of other infectious and parasitic diseases
CPT/HCPCS: 2NASP; 36415; 73502-RT; 82436; 97116-GO; 97161-GP; 97530-GO; J0690; J0735; J1100; J1885; J2405; J2550; J3490; J7042